=== PATIENT | male | born 1970 | race Caucasian/White ===

== ENCOUNTER 2019-03-22 11:56 | Emergency (ER) | payer SELFPAY ==
[~2019-03-22] VITALS: Ht 190.5 cm; Wt 140.2 kg
[2019-03-22 12:23] VITALS: Ht 190.5 cm; Wt 140.2 kg
[2019-03-22 13:40] VITALS: BP 134/71
== END 2019-03-22 13:50 | disposition home or self-care (01) ==
LOC: ED 11:56
DX: S61.512A Laceration without foreign body of left wrist, initial encounter (principal); W18.30XA Fall on same level, unspecified, initial encounter; Y93.89 Activity, other specified; Y92.89 Other specified places as the place of occurrence of the external cause; Y99.8 Other external cause status
CPT/HCPCS: A4570; J2001; Q0092